=== PATIENT | female | born 1965 | race American Indian/Alaskan Native ===

== ENCOUNTER 2016-03-17 18:01 | Emergency (ER) | payer OTHER ==
[2016-03-17 21:11] VITALS: BP 152/87
[2016-03-17 21:49] LABS: Bilirubin,Urine NEG (Negative); Blood,Urine NEG (Negative); Ketones,Urine NEG (Negative); Leukocyte Esterase,Urine NEG (Negative); Nitrite,Urine NEG (Negative); Protein,Urine <15 mg/dL mg/dL (Negative); Urobilinogen,Urine < 2.0 mg/dL (<2.0)
--- NOTE | 2016-03-17 21:55 | Emergency Department Report ---
- General Chief complaint: Skin Rash Stated complaint: DIABETIC/ WOUND ISSUE Time Seen by Provider: 03/17/16 21:44 Source: patient Mode of arrival: Ambulatory Limitations: No Limitations - History of Present Illness Initial comments: Patient presents with abscess and skin fold between her breasts 6 days. She admits to drainage and odor. She does have a history of diabetes and hypertension. She also has a history of recurrent skin abscess. Her PCP is Issa Dumont She also complains of lower back pain that is chronic. She is not currently on medication for this. She denies urinary symptoms MD complaint: abscess/boil -: Gradual Tetanus Up to Date: unsure Location: generalized (skin fold inbetween breasts) Severity scale (0 -10): 5 Quality: sharp Consistency: constant Worsens with: none Associated symptoms: denies other symptoms Treatments Prior to Arrival: none - Related Data Home Medications Medication Instructions Recorded Confirmed Last Taken ALPRAZolam [Xanax TAB] 0.5 mg PO QHS 09/06/13 09/06/13 09/05/13 Aspirin [Aspirin BABY CHEW TAB] 81 mg PO DAILY 09/06/13 09/06/13 09/05/13 Ergocalciferol [Vitamin D2] 1 cap PO QWEEK 09/06/13 09/06/13 09/02/13 Previous Rx's Medication Instructions Recorded Last Taken Type Ibuprofen [Motrin 800 MG tab] 800 mg PO Q8H PRN #30 tablet 06/07/14 Unknown Rx guaiFENesin/CODEINE [Robitussin AC] 5 ml PO Q12HR 5 Days 06/07/14 Unknown Rx HYDROcodone/APAP 5-325 [[place] 1 each PO Q6HR PRN #20 tablet 04/16/15 Unknown Rx 5/325] Ibuprofen [Motrin] 800 mg PO Q8HR PRN #30 tablet 04/16/15 Unknown Rx Sulfamethoxazole/Trimethoprim 1 each PO BID #20 tablet 03/17/16 Unknown Rx [Bactrim DS TAB] traMADol [Ultram 50 MG tab] 50 mg PO BID PRN #14 tablet 03/17/16 Unknown Rx Allergies Allergy/AdvReac Type Severity Reaction Status Date / Time No Known Allergies Allergy Verified 05/25/13 10:31 Abscess Boil HPI - HPI Chief Complaint: Skin Rash Stated Complaint: DIABETIC/ WOUND ISSUE Time Seen by Provider: 03/17/16 21:44 Home Medications: Home Medications Medication Instructions Recorded Confirmed Last Taken ALPRAZolam [Xanax TAB] 0.5 mg PO QHS 09/06/13 09/06/13 09/05/13 Aspirin [Aspirin BABY CHEW TAB] 81 mg PO DAILY 09/06/13 09/06/13 09/05/13 Ergocalciferol [Vitamin D2] 1 cap PO QWEEK 09/06/13 09/06/13 09/02/13 Previous Rx's Medication Instructions Recorded Last Taken Type Ibuprofen [Motrin 800 MG tab] 800 mg PO Q8H PRN #30 tablet 06/07/14 Unknown Rx guaiFENesin/CODEINE [Robitussin AC] 5 ml PO Q12HR 5 Days 06/07/14 Unknown Rx HYDROcodone/APAP 5-325 [[place] 1 each PO Q6HR PRN #20 tablet 04/16/15 Unknown Rx 5/325] Ibuprofen [Motrin] 800 mg PO Q8HR PRN #30 tablet 04/16/15 Unknown Rx Sulfamethoxazole/Trimethoprim 1 each PO BID #20 tablet 03/17/16 Unknown Rx [Bactrim DS TAB] traMADol [Ultram 50 MG tab] 50 mg PO BID PRN #14 tablet 03/17/16 Unknown Rx Allergies/Adverse Reactions: Allergies Allergy/AdvReac Type Severity Reaction Status Date / Time No Known Allergies Allergy Verified 05/25/13 10:31 ED Review of Systems ROS: Stated complaint: DIABETIC/ WOUND ISSUE Other details as noted in HPI Respiratory: denies: cough, shortness of breath, wheezing Cardiovascular: denies: chest pain, palpitations Gastrointestinal: denies: abdominal pain, nausea, diarrhea Skin: as per HPI Neurological: denies: headache, weakness, paresthesias Psychiatric: denies: anxiety, depression ED Past Medical Hx - Past Medical History Previous Medical History?: Yes Hx Hypertension: Yes Hx Diabetes: Yes Hx Arthritis: No Hx Headaches / Migraines: Yes - Surgical History Past Surgical History?: Yes Additional Surgical History: hysterectomy, x 2 - Social History Smoking Status: Never Smoker Substance Use Type: None - Medications Home Medications: Home Medications Medication Instructions Recorded Confirmed Last Taken Type ALPRAZolam [Xanax TAB] 0.5 mg PO QHS 09/06/13 09/06/13 09/05/13 History Aspirin [Aspirin BABY CHEW TAB] 81 mg PO DAILY 09/06/13 09/06/13 09/05/13 History Ergocalciferol [Vitamin D2] 1 cap PO QWEEK 09/06/13 09/06/13 09/02/13 History Ibuprofen [Motrin 800 MG tab] 800 mg PO Q8H PRN #30 tablet 06/07/14 Unknown Rx guaiFENesin/CODEINE [Robitussin AC] 5 ml PO Q12HR 5 Days 06/07/14 Unknown Rx HYDROcodone/APAP 5-325 [[place] 1 each PO Q6HR PRN #20 tablet 04/16/15 Unknown Rx 5/325] Ibuprofen [Motrin] 800 mg PO Q8HR PRN #30 tablet 04/16/15 Unknown Rx Sulfamethoxazole/Trimethoprim 1 each PO BID #20 tablet 03/17/16 Unknown Rx [Bactrim DS TAB] traMADol [Ultram 50 MG tab] 50 mg PO BID PRN #14 tablet 03/17/16 Unknown Rx ED Physical Exam - General Limitations: No Limitations General appearance: alert, in no apparent distress - Neck Neck exam: Present: normal inspection, full ROM - Respiratory Respiratory exam: Present: normal lung sounds bilaterally. Absent: respiratory distress - Cardiovascular Cardiovascular Exam: Present: regular rate, normal rhythm. Absent: systolic murmur, diastolic murmur, rubs, gallop - GI/Abdominal GI/Abdominal exam: Present: soft, normal bowel sounds - Back Exam Back exam: Present: normal inspection, full ROM - Neurological Exam Neurological exam: Present: alert, oriented X3 - Psychiatric Psychiatric exam: Present: normal affect, normal mood - Skin Skin exam: Present: warm, dry, intact, normal color, other (patient has very large breasts, she has an abscess in the skin fold in between her breasts, there is a foul odor and yellow dried drainage, nor are 2 pinpoint holes present ). Absent: rash ED Course Vital Signs 03/17/16 03/17/16 18:08 21:06 Temperature 98.8 F 98.3 F Pulse Rate 118 H 109 H Respiratory 16 22 Rate Blood Pressure 149/92 Blood Pressure 152/87 [Right] O2 Sat by Pulse 100 100 Oximetry ED Medical Decision Making - Medical Decision Making Patient presents with skin abscess, for which she has a chronic history. She is also positive for diabetes and hypertension. I will give her Bactrim twice a day 10 days. She denies having kidney dysfunction. I will also give her tramadol for her chronic lower back pain and the pain from the skin abscess. - Differential Diagnosis chronic back pain, skin abscess, cyst Critical Care Time: No Critical care attestation.: If time is entered above; I have spent that time in minutes in the direct care of this critically ill patient, excluding procedure time. ED Disposition Clinical Impression: Abscess of skin of breast, Chronic back pain Disposition: DISCHARGED TO HOME OR SELFCARE Is pt being admited?: No Does the pt Need Aspirin: No Condition: Stable Instructions: Chronic Back Pain (ED), Abscess (ED) Additional Instructions: Follow up with your PCP Issa Dumont as discussed. Prescriptions: Sulfamethoxazole/Trimethoprim [Bactrim DS TAB] 1 each PO BID #20 tablet traMADol [Ultram 50 MG tab] 50 mg PO BID PRN #14 tablet PRN Reason: Pain Referrals: PRIMARY CARE, [Primary Care Provider] - 3-5 Days Forms: Work/School Release Form(ED), Accompanied Note Time of Disposition: 22:05
== END 2016-03-17 22:12 | disposition home or self-care (01) ==
LOC: ED 18:01
DX: N61.1 Abscess of the breast and nipple (principal); M54.5 Low back pain; G89.29 Other chronic pain; I10 Essential (primary) hypertension; E11.9 Type 2 diabetes mellitus without complications; G43.909 Migraine, unspecified, not intractable, without status migrainosus
CPT/HCPCS: 81001; 82962